=== PATIENT | male | born 1985 | race Two or more races ===

== ENCOUNTER 2025-04-27 09:56 | Day surgery (SDC) | payer MEDICAID, SELFPAY ==
[2025-04-27] VITALS (11 sets, daily range): BP systolic 124–173; BP diastolic 79–98; PULSE 64–86; RESP 12–20; TEMP 36.7; O2SAT 94–100; BMI 26.7
--- NOTE | 2025-04-27 10:03 | EKG_ITS ---
[facility] Test Date: 2025-04-27 Pat Name: ANALISA DOTY Department: Room: - Gender: Male Field Sales Specialist: AMILCAR : 1985 Requested By: Nick Solorzano Order Number: [id number] Reading MD: Nick Solorzano Measurements Intervals Irons Rate: 49 P: 59 MI: 165 QRS: 16 QRSD: 101 T: 16 QT: 447 QTc: 405 Interpretive Statements SINUS BRADYCARDIA POSSIBLE RIGHT VENTRICULAR CONDUCTION DELAY [RSR (QR) IN V1/V2] Compared to ECG 06/24/2023 19:46:15 Left ventricular hypertrophy no longer present /[id number]/[id number].pdf
[2025-04-27 10:54] LABS: Anion Gap 8 (7-16); BUN/Creatinine Ratio 17 Ratio (12-20); Blood Urea Nitrogen 12 mg/dL (9-23); Calcium 9.4 mg/dL (8.3-10.6); Carbon Dioxide 28.5 mMol/L (20.0-31.0); Chloride 107 mMol/L (98-107); Creatinine (Component) 0.7 mg/dL (0.6-1.3); Glucose 100 mg/dL (74-106); Osmolality,Calculated 284 (275-295); Potassium 4.0 mMol/L (3.4-5.1); Sodium 143 mMol/L (136-145); eGFR > 60 See Note
[2025-04-27 11:04] LABS: Basophils # (Auto) 0.0 Thou/mm3 (0.0-0.2); Basophils % (Auto) 1 % (0-2.5); Eosinophils # (Auto) 0.1 Thou/mm3 (0.0-0.5); Eosinophils % (Auto) 2 % (0-10); Hematocrit 44.5 % (41.0-53.0); Hemoglobin 15.3 g/dL (13.5-16.0); Immature Granulocytes Auto 0.01 Thou/mm3 (0.00-0.00); Lymphocytes # (Auto) 2.4 Thou/mm3 (1.0-4.8); Lymphocytes % (Auto) 51 % (10-50); Mean Corpuscular HGB Conc 34.4 g/dl (31.0-37.0); Mean Corpuscular Hemoglobin 29.8 pg (25.0-35.0); Mean Corpuscular Volume 87 fL (80-100); Monocytes # (Auto) 0.3 Thou/mm3 (0.0-0.8); Monocytes % (Auto) 7 % (0-12); Neutrophils # (Auto) 1.8 Thou/mm3 (1.8-7.7); Neutrophils % (Auto) 40 % (37-80); Nucleated Red Blood Cell # 0.00 Thou/mm3 (0.00-0.00); Nucleated Red Blood Cell % 0 /100 WBC (0); Platelet Count 235 Thou/mm3 (140-440); RDW Standard Deviation 39.2 fL (35.1-43.9); Red Blood Count 5.13 Miln/mm3 (4.50-5.90); White Blood Count 4.7 Thou/mm3 (3.8-10.6)
[2025-04-27 11:15] LABS: INR 1.1 (0.9-1.3); Partial Thromboplastin Time 27.5 Seconds (22.0-36.0); Prothrombin Time 11.4 Seconds (9.0-12.2)
--- NOTE | 2025-04-27 11:30 | ECHO_ITS ---
Patient Info Name: Marcell Gamboa Age: 40 years : 1985 Gender: Male Ht: 172 cm Wt: 77 kg BSA: 1.93 m2 BP: 134 / 85 mmHg HR: 61 bpm Heart Rhythm: Sinus Rhythm Exam Date: 04/27/2025 11:48 AM Admit Date: 04/27/2025 Site: [facility] Room Number: central lab technician Patient Status: O Technical Quality: Fair Exam Type: CA echo transesophageal Plate Gauger: Babs Hatch Ordering Physician: Nick Solorzano Referring Physician: Nick Solorzano Study Info Indications differential eustachian valve VS Atrial septal aneurysm - Contrast/Agitated Saline Contrast/Ag. Saline: Agitated Saline Amount: --- ml Primary Location: [facility] Tricuspid Valve Name Value Normal Estimated PAP/RSVP RA Pressure 3 mmHg <=5 Left Ventricle Left ventricular systolic function is normal with visually estimated ejection fraction of 60-65%. Mitral Valve There is mild mitral valve regurgitation. Tricuspid Valve There is trace tricuspid valve regurgitation. Pericardium/Pleural There is no pericardial effusion. Summary 1. Indication: Differential Eustachian valve vs Atrial septal aneurysm. 2. 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 3. Bubble study positive for small PFO with agitated saline and not color doppler. No LA or STELLA thrombus. 4. Normal LV size and function. Estimated EF is 60-65%. 5. Normal RV size and function. 6. Trace TR and Trace- mild MR. Report Signatures Finalized by Nick Solorzano on 05/04/2025 07:42 PM
[2025-04-27] MEDS: fentaNYL CIT INJ 50 mCg/ML AMP 2ML 100 MCG IVP (12:01)
[2025-04-27] MEDS: MIDAZOLAM INJ 1 MG/ML VIAL 2 ML 5.5 MG IVP (12:01)
[2025-04-27] MEDS: BENZOCAINE 20% (Hurricaine) SPRAY 1 DOSE TOP (12:01)
--- NOTE | 2025-04-27 13:14 | PC.NURSE ---
patient transferred via wheelchair to private vehicle. patient tolerated procedure well. 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 patient alert and oriented. gcs of 15. patient denies the need to urinate. patient expressed no discomfort or pain.
== END 2025-04-27 13:14 | disposition home or self-care (01) ==
PROVIDERS: Referring Provider Internal Medicine Cardiovascular Disease; Visit Provider Internal Medicine Cardiovascular Disease
PROC: (CPT 93312; principal; 2025-04-27 11:30)
DX: Q20.9 Congenital malformation of cardiac chambers and connections, unspecified (principal); R07.9 Chest pain, unspecified; R00.2 Palpitations; E78.00 Pure hypercholesterolemia, unspecified; K21.9 Gastro-esophageal reflux disease without esophagitis; R06.02 Shortness of breath; Q21.12 Patent foramen ovale
CPT/HCPCS: 36415; 80048; 85025; 85610; 85730; 93005; 93312; 99152; J2250; J3010; A9270